=== PATIENT | male | born 1980 | race Two or more races ===

== ENCOUNTER 2022-02-14 09:00 | Day surgery (SDC) | payer OTHER ==
[~2022-02-14 09:00] MED LIST: COZAAR100 MG PO; XIGDUO XR 5 MG1 EACH PO
[2022-02-14] MEDS ORDERED: COLACE100 MG PO (12:09)
[2022-02-14] MEDS ORDERED: ULTRACET PO (12:09)
== END 2022-02-14 17:05 | disposition home or self-care (01) ==
LOC: CIR.AMB 09:00
PROVIDERS: ATTEND Surgery
DX: K60.3 Anal fistula (principal); K62.89 Other specified diseases of anus and rectum; Z91.013 Allergy to seafood; I10 Essential (primary) hypertension; Z87.891 Personal history of nicotine dependence; F41.9 Anxiety disorder, unspecified; E11.9 Type 2 diabetes mellitus without complications; E66.9 Obesity, unspecified; G47.33 Obstructive sleep apnea (adult) (pediatric); Z20.822 Contact with and (suspected) exposure to COVID-19; L05.91 Pilonidal cyst without abscess